=== PATIENT | male | born 1970 | race Caucasian/White ===

== ENCOUNTER 2016-06-06 09:19 | Inpatient (IN) ==
[2016-06-02 14:15] LABS: Appearance,Urine CLEAR; Bilirubin,Urine NEG (NEG); Color,Urine YELLOW; Glucose,Urine (UA) NEGATIVE (NEG); Leukocyte Esterase,Urine NEG /uL (NEG); Nitrate,Urine NEG (NEG); Protein,Urine NEG (NEG); Specific Gravity,Urine 1.018 (1.000-1.035); Urine Blood NEG mg/dL (<0.03); Urobilinogen,Urine NEG (NEG)
[2016-06-02 14:15] LABS: Basophils # (Auto) 0.1 K/mcL (0.0-0.3); Basophils % (Auto) 0.7 % (0.0-2.0); Eosinophils # (Auto) 0.5 K/mcL (0.0-0.7); Eosinophils % (Auto) 6.7 % (0.0-7.0); Granulocytes % (Auto) 52.7 % (38.0-78.0); Lymphocytes # (Auto) 2.3 K/mcL (1.5-4.8); Lymphocytes % (Auto) 29.5 % (15.5-49.0); Mean Cell Volume 92.1 fL (80.0-100.0); Mean Corpuscular HGB Conc 33.1 g/dL (31.0-36.0); Mean Corpuscular Hemoglobin 30.4 pg (26.0-34.0); Monocytes # (Auto) 0.8 K/mcL (0.1-0.9); Monocytes % (Auto) 10.4 % (1.0-12.0); Platelet Count 257 K/mcL (140-440); RBC 5.12 M/mcL (4.50-5.90); Red Cell Distribution Width 13.3 % (11.5-14.5)
[2016-06-02 14:17] LABS: Blood Urea Nitrogen 16 mg/dl (6-20)
[~2016-06-06 09:19] MED LIST: ACETAMINOPHEN 500 MG TABLET PO SCH; CELECOXIB 200 MG CAPSULE PO SCH; KETOROLAC 30 MG, ROPIVACAINE HCL/PF 49.5 ML, EPINEPHrine 0.5 MG, 0.9 % SODIUM CHLORIDE ... IJ SCH; PREGABALIN 150 MG CAPSULE PO SCH; ceFAZolin 1 GM VIAL IV SCH; oxyCODONE 10 MG TAB.ER.12H PO SCH
[2016-06-06] MEDS ORDERED: SCOPOLAMINE 1 PATCH PATCH TOPICAL ONE (09:42)
[2016-06-06] MEDS ORDERED: ONDANSETRON 4 MG/2 ML VIAL ONE (12:31)
[2016-06-06] MEDS ORDERED: MIDAZOLAM 5 MG/5 ML VIAL ONE (12:31)
[2016-06-06] MEDS ORDERED: LIDOCAINE HCL/PF 100 MG/5 ML SYRINGE IV ONE (12:31)
[2016-06-06] MEDS ORDERED: PROPOFOL 200 MG/20 ML VIAL IV ONE (12:31)
[2016-06-06] MEDS ORDERED: GLYCOPYRROLATE 0.2 MG/ML VIAL IV ONE (12:31)
[2016-06-06] MEDS ORDERED: GENTAMICIN SULFATE 800 MG/20 ML VIAL IR ONE (13:11)
[2016-06-06] MEDS ORDERED: METHOCARBAMOL 1,000 MG/10 ML VIAL IV PRN (13:27)
[2016-06-06] MEDS ORDERED: BENZOCAINE/MENTHOL 1 LOZENGE PO PRN ×2 (13:27→14:28)
[2016-06-06] MEDS ORDERED: ONDANSETRON 4 MG/2 ML VIAL IV PRN ×2 (13:27→14:28)
[2016-06-06] MEDS ORDERED: IPRATROPIUM/ALBUTEROL 3 ML AMPUL.NEB NEB PRN (13:27)
[2016-06-06] MEDS ORDERED: fentaNYL 100 MCG/2 ML VIAL IV PRN (13:27)
[2016-06-06] MEDS ORDERED: MEPERIDINE 25 MG/ML SYRINGE IV PRN (13:27)
[2016-06-06] MEDS ORDERED: LACTATED RINGERS 1,000 ML IV SCH (13:30)
[2016-06-06] MEDS ORDERED: FLEETS ADULT ENEMA PR PRN (14:28)
[2016-06-06] MEDS ORDERED: ACETAMINOPHEN 325 MG TABLET PO PRN (14:28)
[2016-06-06] MEDS ORDERED: POLYETHYLENE GLYCOL 3350 17 GM PACKET PO PRN (14:28)
[2016-06-06] MEDS ORDERED: MAGNESIUM HYDROXIDE 30 ML ORAL.SUSP PO PRN (14:28)
[2016-06-06] MEDS ORDERED: BISACODYL 10 MG SUPP.RECT PR PRN (14:28)
[2016-06-06] MEDS ORDERED: TRANEXAMIC ACID 1,000 MG/10 ML VIAL IV SCH (14:28)
[2016-06-06] MEDS ORDERED: HYDROmorphone 2 MG/ML SYRINGE IV PRN (14:28)
--- NOTE | 2016-06-06 14:28 | Brief Operative Note ---
Date of procedure: 06/06/16 Pre-op diagnosis: right knee djd Post-op diagnosis: same Procedure: right robotic tka Grafts/Implants: Yes Anesthesia: GETA, none Findings: severe djd Complications: none Complications Description: 06/06/16 14:27 none Surgeon: Camron Meraz Tar Heater Operator: Yariel Gonzalez Estimated blood loss (cc): 20 Tourniquet Time (Minutes): 68 Specimens Removed/Pathology: none sent Condition: stable Disposition: PACU
[2016-06-06] MEDS ORDERED: NAPROXEN (PP) 200MG TABLET (#24) PO PRN (14:30)
--- NOTE | 2016-06-06 15:10 | XRay Report ---
HISTORY: Reason for Exam:Post-Op Total Knee FINDINGS: Is well positioned total knee prosthesis. There are small bone chips above the patella and posterior to the knee joint, seen on the lateral film. There is a screw placed transversely into the proximal shaft of the tibia. Moderate size joint effusion is noted. IMPRESSION: Well-positioned knee prosthesis Interpreted and Authenticated by: Jordy Ashraf 06/06/16
--- NOTE | 2016-06-06 16:10 | Operative Note ---
DATE OF OPERATION: 06/06/2016 PREOPERATIVE DIAGNOSIS: Right knee degenerative arthritis. POSTOPERATIVE DIAGNOSIS: Right knee degenerative arthritis. PROCEDURE: Right cruciate retained total knee arthroplasty using the ZIA robot. These were cemented components. SURGEON: Camron Meraz MD. SENIOR DIGITAL DESIGNER: Yariel Gonzalez PA-C. COMPLICATIONS: None. TOTAL TOURNIQUET TIME: 68 minutes. DESCRIPTION OF PROCEDURE: The patient was brought to the operating room and put to sleep with general LMA anesthesia. Once asleep, the patient had the right leg sterilely prepped and draped in the usual sterile fashion. Once this was complete, we then exsanguinated the leg, tourniquet placed at 250 pounds of pressure. We confirmed the operative site and given preop antibiotics, 2 grams of Ancef and tranexamic acid. Once this was completed, we then exposed the joint. After this confirmation the midline incision was made, mid vastus approach performed. We exposed the joint showing severe arthritis of the lateral compartment. He did have an ACL reconstruction with spurs anteriorly and posteriorly with multiple loose bodies. Patellofemoral spur formation as well. We then proceeded with a total knee arthroplasty given the degree of severe arthritis throughout the knee. With this, we did place two pins above and below the knee. These pins were attached to arrays that confirmed position of the knee and took it through the range of motion to confirm center of hip rotation. Medial and lateral malleoli were registered. Once these were registered, we then registered 30 points intraarticularly on the femur and tibia. The intraarticular pins were positioned and registered. We then balanced the knee after removing osteophytes with varus and valgus stress at 15 degrees of flexion and at 90 degrees using osteotomes to balance the knee. We irrigated thoroughly. We then proceeded with the ZIA total knee arthroplasty. The robot was brought in. We registered the femoral component and the pin and registered the robotic blade. Once this was done, the saw was brought in. The distal femoral cut and the posterior chamfer cut were created. Once done, we then reattached the straight blade and the posterior and anterior cuts and anterior chamfer cuts were created and made with the robot. We then removed these bony fragments and made the tibial cut as pre-templated had been done prior to these cuts. We then removed the bony fragments and removed the remnants of the meniscus. Large loose bodies and osteophytes were removed from the back of the knee, taking care to avoid neurovascular structures. We irrigated thoroughly and then registered the rotation of the tibial baseplate, which fit very nicely. This was a size 6. This was punched into place. We punched into place the femur and made our drill holes for the pegs and then prepared the patella. It measured 25 mm in total thickness. We then cut this to [address] a 39 mm patellar button. A small chamfer cut was made laterally. Everything seemed to track very nicely. We irrigated thoroughly. We then prepared the bony surface with pulse lavage and CarboJet. Once this was done, we then positioned a long-stemmed implant into the tibia. We removed excess cement, also positioned the femoral component and excess cement was removed. We placed a 9 mm poly which seemed to balance nicely. We did release the distal portion of the medial collateral ligament to balance the knee more accurately. We then resurfaced the patella with a 39 mm component. We then irrigated thoroughly and kept the knee at 45 degrees until all cement was dried, reinspected the joint for any loose fragments or debris. We closed the capsule with #2 FiberWire and a double-armed #1 Maxon. We irrigated thoroughly. We then closed the skin with 2-0 Vicryl and adhesive closure. The patient tolerated this well. Tourniquet time was approximately 68 minutes. LUIS DANIEL:uday Job ID: [id number] Doc ID: [id number] Camron Meraz MD
[2016-06-06] MEDS: oxyCODONE/APAP 5/325MG TABLET PO PRN ×3 (16:17→20:39)
[2016-06-06] MEDS: 0.45 % SODIUM CHLORIDE 1,000 ML IV SCH ×2 (16:54)
[2016-06-06] MEDS: KETOROLAC 15 MG/ML VIAL IV SCH ×2 (18:59→23:56)
[2016-06-06] MEDS: oxyCODONE 10 MG TAB.ER.12H PO SCH (20:38)
[2016-06-06] MEDS: DOCUSATE SODIUM 100 MG CAPSULE PO SCH (20:38)
[2016-06-06] MEDS: ASPIRIN 325 MG ENTERIC COATED TABLET PO SCH (20:39)
[2016-06-06] MEDS: 0.9 % SODIUM CHLORIDE 10 ML SYRINGE IV SCH (20:39)
[2016-06-06] MEDS: ceFAZolin 1 GM VIAL IV SCH (20:46)
[2016-06-06] MEDS ORDERED: SENNOSIDES 1 TABLET PO SCH (21:00)
[2016-06-06] MEDS ORDERED: TEMAZEPAM 15 MG CAPSULE PO PRN (21:00)
[2016-06-07] MEDS: oxyCODONE/APAP 5/325MG TABLET PO PRN ×4 (00:25→13:25)
[2016-06-07] MEDS: 0.45 % SODIUM CHLORIDE 1,000 ML IV SCH ×2 (02:17→08:54)
[2016-06-07] MEDS: ceFAZolin 1 GM VIAL IV SCH (04:26)
[2016-06-07] MEDS: 0.9 % SODIUM CHLORIDE 10 ML SYRINGE IV SCH (05:11)
[2016-06-07] MEDS: KETOROLAC 15 MG/ML VIAL IV SCH ×2 (05:53→12:00)
--- NOTE | 2016-06-07 07:32 | Orthopedic Progress Note ---
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 Chief Complaint: [Pt is stable this morning on post operative day 1 without any significant concerns or complaints. Patients vital signs have remained stable. Patients dressing is dry and exhibits a grossly intact neurovascular and neuromotor exam. Patients 10 point ROS is otherwise negative. ] Objective Vital signs: Vital Signs Temp Pulse Pulse Resp BP BP Pulse Ox 06/07/16 07:07 96 06/07/16 04:00 97.8 F 78 16 123/75 95 06/06/16 23:33 97.3 F L 86 20 128/81 96 06/06/16 20:00 97.0 F L 65 20 122/83 95 06/06/16 17:20 63 125/86 95 06/06/16 17:07 70 136/83 98 06/06/16 17:05 62 118/77 98 06/06/16 16:50 62 130/84 98 06/06/16 15:59 55 L 116/69 93 06/06/16 15:50 74 130/86 96 06/06/16 15:35 77 131/86 96 06/06/16 15:16 83 16 130/83 98 06/06/16 15:00 67 16 132/73 99 06/06/16 14:43 98.1 F 88 10 L 124/71 99 06/06/16 13:35 74 131/86 96 06/06/16 09:53 97.3 F L 73 16 133/89 Intake and Output 06/06/16 06/07/16 06/07/16 21:59 05:59 13:59 Intake Total 3000 / 3000 2400 / 2400 Output Total 300 / 300 850 / 850 Balance 2700 / 2700 1550 / 1550 Intake: IV 2200 / 2200 Oral 800 / 800 2400 / 2400 Output: Urine Catheter Amount 250 / 250 Void Amount 850 / 850 Estimated Blood Loss 50 / 50 Other: Weight 234 lb Intake & Output: Intake & Output 06/06/16 06/07/16 06/07/16 21:59 05:59 13:59 Intake Total 3000 / 3000 2400 / 2400 Output Total 300 / 300 850 / 850 Balance 2700 / 2700 1550 / 1550 Weight 234 lb Intake: IV 2200 / 2200 Oral 800 / 800 2400 / 2400 Output: Urine Catheter Amount 250 / 250 Void Amount 850 / 850 Estimated Blood Loss 50 / 50 Incision: Yes healing Incision clean and dry: Yes Dressing: Yes clean Weight bearing status: full Neurological exam IM: Yes motor sensory intact, Yes neurovascular intact Extremities exam IM: Yes Foot pink and warm, Yes neurovascular intact - Labs CBC & BMP: 06/07/16 04:15 06/02/16 11:00 Labs: 06/07/16 06/02/16 04:15 11:00 Hgb 15.6 Hct 35.7 L 47.2 Assessment and Plan (1) Hx of total knee arthroplasty Patient has been educated regarding wound care and dressings, follow up recommendations, and medication use. We will f/u with the patient within 2-3 weeks for wound check. Status: Acute (2) Hx of total knee arthroplasty Status: Acute
--- NOTE | 2016-06-07 07:33 | Discharge Summary ---
Ortho Discharge - TKA - Patient Instructions Diet: Regular Diet Activity: activity as tolerated, weight bearing as tolerated Total Knee Protocol: For Total Knee: Start ROM JUAN PABLO with stationary bike or rocking chair. Work on gaining full extension of knee. Posterior dislocation precautions provided. Hip abductor strengthening and gait training instructions provided. Apply Cryocuff as instructed. Dressing Care: Aquacel Ag - leave on for 5 days Patient Education: Oxycodone/Acetaminophen (By mouth), Total Knee Replacement ( DC) Additional Instructions: Discharge Instructions: Maday DE LEON @ [facility] [phone] APPOINTMENT: June 09 @ 12:30pm Take your photo ID, insurance cards, and current medication list with you to your first physical therapy appointment. Wear comfortable clothing for your physical therapy. You may want to consider taking pain medication 45 minutes prior to your appointment. Your orders have been faxed to them. Weight bearing as tolerated. Use your crutches as needed. If you have the Aquacel Ag dressing, leave in place for 7 days then remove. If dressing becomes soiled (turns black), remove and use gauze 4x4 dressing and silvasorb ointment and change daily. Keep incision clean and dry. To avoid constipation while taking any narcotic pain medication, take an over the counter stool softener/laxative. Use your Cryocuff or ice packs as directed, on for 20 minutes at a time throughout the day. This and elevation will help with pain and swelling. Call your physician for fevers above 100.5 or pain not controlled by medication. Your prescriptions are with your discharge information. Some medications were electronically transmitted to your pharmacy of choice. - Problem Maintenance (1) Hx of total knee arthroplasty Status: Acute (2) Hx of total knee arthroplasty Status: Acute - Follow Up Plan Follow Up Appointments: Camron Meraz MD [Physician] - 06/21/16 8:40 am Disposition: Home, Self-Care Prognosis: Good Rehab Potential: Good I certify that the patient requires SNF services: No Overall status at discharge: patient is progressing back to baseline - Orders For Discharge Prescriptions: Aspirin [Ecotrin] 325 mg PO BID #28 tab.ec Cane 1 each MC 3-4XD PRN #1 each PRN Reason: Pain Crutch 1 each MC DAILY #2 each oxyCODONE/APAP [Percocet 5-325 mg] 1 - 2 tab PO Q4H PRN #60 tablet PRN Reason: Pain Additional Discharge Orders: Physical Therapy at Discharge - [facility] Location: Determined By Patient Toilet Riser Discharge Order Location: Determined By Patient Walker Location: Determined By Patient
[2016-06-07] MEDS: ASPIRIN 325 MG ENTERIC COATED TABLET PO SCH (08:51)
[2016-06-07] MEDS: oxyCODONE 10 MG TAB.ER.12H PO SCH (08:51)
[2016-06-07] MEDS: DOCUSATE SODIUM 100 MG CAPSULE PO SCH (08:52)
== END 2016-06-07 14:23 | disposition home or self-care (01) | DRG 470 ==
LOC: MEDSUR 09:19
PROVIDERS: ADMIT Orthopaedic Surgery; ATTEND Orthopaedic Surgery